=== PATIENT | female | born 1990 ===

== ENCOUNTER 2017-11-09 11:29 | Emergency (ER) | payer MEDICAID ==
[2017-11-09 11:29] VITALS: BMI 40.1
--- NOTE | 2017-11-09 12:36 | C.PDOC ---
History Of Present Illness 27 y/o F c no PMHx p/w R shoulder pain since last night. Patient was walking down stairs holding onto railing and missed step, fell down, still holding onto railing, and felt a pop in the shoulder. Sharp, severe pain in shoulder, gradually worsening since last night, unable to range due to pain. Denies headstrike, LOC, nausea, vomiting, numbness. Time Seen by Provider: 11/09/17 12:20 Chief Complaint (Nursing): Upper Extremity Problem/Injury Past Medical History Vital Signs: Last Vital Signs Temp 98.9 F 11/09/17 16:11 Pulse 65 11/09/17 16:11 Resp 20 11/09/17 16:11 BP 125/71 11/09/17 16:11 Pulse Ox 99 11/09/17 16:11 - Medical History PMH: Asthma Family History: States: Unknown Family Hx - Social History Hx Alcohol Use: Yes Hx Substance Use: No - Immunization History Hx Tetanus Toxoid Vaccination: No Hx Influenza Vaccination: No Hx Pneumococcal Vaccination: No Review Of Systems Except As Marked, All Systems Reviewed And Found Negative. Constitutional: Negative for: Fever Respiratory: Negative for: Shortness of Breath Physical Exam - Physical Exam Additional Physical Exam Comments: Gen: In distress secondary to pain. Head: NC/AT. FROM of elbow. No elbow tenderness. No forearm tenderness. Radial pulse 2+. Moves digits. No deltoid numbness. No obvious deformity. No clavicular tenderness. ED Course And Treatment O2 Sat by Pulse Oximetry: 98 Medical Decision Making Medical Decision Making: Toradol for pain. XR to rule out fracture vs dislocation. XR shows possible shoulder subluxation. Reduced with conscious sedation. Repeat XR: Findings: Status post reduction of the right proximal humerus. Flattening of the posterior lateral humeral head which may represent a Hill- Sachs deformity. Limited evaluation of the inferior bony glenoid on this single frontal view. Acromioclavicular joint space appears preserved. Impression: Status post reduction of the right proximal humerus. Flattening of the posterior lateral humeral head which may represent a Hill- Sachs deformity. Limited evaluation of the inferior bony glenoid on this single frontal view. If pain persists, consider MRI. Placed in sling and swathe. Patient continues to have pain but shoulder movement improved. Deltoid sensation and distal digits sensation intact. Moves digits normally. Radial pulse 2+. Discharged home, f/u Ortho, return to ED for worsening pain, numbness, weakness , skin color or temperature change. Disposition - Disposition Referrals: Rob Francis MD [Staff Provider] - Disposition: HOME/ ROUTINE Disposition Time: 16:07 Condition: STABLE Prescriptions: oxyCODONE/Acetaminophen [Percocet 5/325 mg Tab] 1 tab PO Q6 #10 tab Instructions: Shoulder Dislocation (ED) Forms: [employer] (Divehi) - Clinical Impression Clinical Impression: Shoulder subluxation ED Procedural Sedation - Pre Anesthesia Assessment Chief Complaint: Upper Extremity Problem/Injury Past Medical History: Medications Reviewed, Allergies Reviewed Previous Surgies: Reviewed - Physical Exam/Review of Systems Vital Signs Reviewed: Yes Cardiovascular: Regular Rate and Rhythm Respiratory/Chest: Clear to Auscultation Neurological: GCS=15 Abdomen: denies: Tenderness Mental Status: Alert and Oriented X 3 - Pre-Procedure Airway Assessment History of difficult intubation or surgical airway (i.e trach):: No Inability to extend neck:: No Mouth opening less than two finger breadth:: No Diagnosis of sleep apnea:: No Less than three finger breadth to hyoid bone:: No ASA Criteria: 1 - Healthy, normal. 2 - Mild systemic disease (No functional limitations, mildline obesity, DM withot complications, Hypertention). 3 - Severe systemic disease (Some functional limitation, stable angina, morbid obesity, controlled COPD/Asthma/CHF). 4 - Sever systemic disease constant threat to life (Unstable angina, active symptoms of COPD/Asthma, CHF/ Hypertension. 5 - Moribund ASA Clarification: ASA I Mallampati (airway): Class II - Intra-Procedure (Medications) Medications Given: Discontinued Medications Acetaminophen (Tylenol 325mg Tab) 975 mg PO ONCE ONE Stop: 11/09/17 12:08 Last Admin: 11/09/17 12:00 Dose: 975 mg MAR Pain/Vitals Document 11/09/17 12:00 FLOOR WINDER (Rec: 11/09/17 12:08 FLOOR WINDER [id number]) Pain Reassessment Is This A Pain ReAssessment? Yes Sleep Is patient sleeping during reassessment? Yes Pain Scale Used Pain Scale Used Numeric Location Left, Right or Bilateral Right Pain Location Body Site Shoulder Intensity 10 Scale Used Numeric Alleviating Factors Medication Ketorolac Tromethamine (Toradol) 60 mg IM STAT STA Stop: 11/09/17 12:27 Last Admin: 11/09/17 13:05 Dose: 60 mg MAR Pain Assessment Document 11/09/17 13:05 FLOOR WINDER (Rec: 11/09/17 13:06 FLOOR WINDER [id number]) Pain Reassessment Is this a pain reassessment? Yes Sleep Is patient sleeping during reassessment? No Presence of Pain Presence of Pain Yes Pain Scale Used Pain Scale Used Numeric IM Administration Charges Document 11/09/17 13:05 FLOOR WINDER (Rec: 11/09/17 13:06 FLOOR WINDER [id number]) Injection Site MAR Injection Site Right Gluteus Matthew Charges for Administration # of IM Administrations 1 Morphine Sulfate (Morphine) 6 mg IVP STAT STA Stop: 11/09/17 15:04 Last Admin: 11/09/17 15:09 Dose: 6 mg MAR Pain Assessment Document 11/09/17 15:09 AMB (Rec: 11/09/17 15:09 AMB [id number]) Pain Reassessment Is this a pain reassessment? No IVP Administration Document 11/09/17 15:09 AMB (Rec: 11/09/17 15:09 AMB [id number]) Charges for Administration # of IVP Administrations 2 Propofol (Diprivan) 140 mg IV ONCE ONE Stop: 11/09/17 15:04 - Post-Procedure Post Procedure Note: L shoulder reduced using traction and counter traction. Patient was observed post procedure and awoke. No desaturations or hypotension.
--- NOTE | 2017-11-09 13:13 | RAD ---
Right shoulder two views History: Fall. Comparison: None available. Findings: Limited study as only two views were obtained. No external rotation view noted. Inferior subluxation of the right proximal humerus in relationship to the bony glenoid. No evidence of acute displaced fracture or dislocation. Acromioclavicular joint space appears preserved. Impression: Suggestion of inferior subluxation of the proximal humerus in relationship to the bony glenoid. Clinical correlation. Correlation with MRI may be helpful if clinically indicated.
--- NOTE | 2017-11-09 13:21 | RAD ---
Right humerus two views History: Fall. Comparison: None available. Findings: Suggestion of inferior subluxation of the right proximal humerus in relationship to the bony glenoid. Acromioclavicular joint space appears preserved. No evidence for acute displaced fracture. Limited evaluation of the elbow joint. Impression: Suggestion of inferior subluxation of the right proximal humerus in relationship to the bony glenoid.
[2017-11-09] MEDS ORDERED: Propofol 10 mg/ml Inj (20 ML) IV STA (13:52)
[2017-11-09] MEDS ORDERED: Propofol 10 mg/ml Inj (20 ML) ONE (14:18)
[2017-11-09] MEDS ORDERED: Propofol 10 mg/ml Inj (20 ML) IV ONE (15:03)
[2017-11-09] MEDS ORDERED: Morphine 4 MG/ML VIAL ONE (15:07)
[2017-11-09 15:42] VITALS: RESP 20
--- NOTE | 2017-11-09 15:54 | RAD ---
Right shoulder single frontal view History: Shoulder reduction. Comparison: 11/09/2017 Findings: Status post reduction of the right proximal humerus. Flattening of the posterior lateral humeral head which may represent a Hill-Sachs deformity. Limited evaluation of the inferior bony glenoid on this single frontal view. Acromioclavicular joint space appears preserved. Impression: Status post reduction of the right proximal humerus. Flattening of the posterior lateral humeral head which may represent a Hill-Sachs deformity. Limited evaluation of the inferior bony glenoid on this single frontal view. If pain persists, consider MRI.
[2017-11-09 16:12] VITALS: BP 125/71; PULSE 65; TEMP 98.9
[2017-11-09 17:58] VITALS: O2SAT 98
== END 2017-11-09 16:43 | disposition home or self-care (01) ==
LOC: C.ER 11:29
DX: S43.001A Unspecified subluxation of right shoulder joint, initial encounter (principal); W10.9XXA Fall (on) (from) unspecified stairs and steps, initial encounter
CPT/HCPCS: 23650; 73030; 73060; 96372; 96374; 96376; 99285; J1885; J2270

== ENCOUNTER 2018-01-14 16:10 | Emergency (ER) | payer MEDICAID ==
[2018-01-14 16:46] VITALS: BMI 40.3
[2018-01-14] MEDS ORDERED: Sodium Chloride 0.9% 1,000 ML IV ONE (17:08)
[2018-01-14] MEDS ORDERED: Aluminum Hydroxide/Magnesium Hydroxide Susp (30 mL) PO STA (17:16)
[2018-01-14] MEDS ORDERED: Belladonna-Phenobarbital PO STA (17:16)
[2018-01-14] MEDS ORDERED: Aluminum Hydroxide/Magnesium Hydroxide Susp (30 mL) ONE (17:41)
[2018-01-14] MEDS ORDERED: Belladonna-Phenobarbital ONE (17:41)
[2018-01-14] MEDS ORDERED: Sodium Chloride 0.9% 1,000 ML ONE (17:41)
[2018-01-14 18:10] LABS: BASO % 0.2 % (0.0-2.0); EOS # 0.1 K/uL (0.0-0.7); EOS % 0.6 % (0.0-4.0); HEMOGLOBIN 13.3 g/dL (11.0-16.0); LYMPH # 3.2 K/uL (1.0-4.3); LYMPH % 29.8 % (20.0-40.0); MEAN CELL VOLUME 98.7 fL (81.0-99.0); MEAN CORPUSCULAR HEMOGLOBIN 33.9 pg (27.0-31.0); MEAN CORPUSCULAR HGB CONC 34.3 g/dL (33.0-37.0); MEAN PLATELET VOLUME 7.8 fL (7.2-11.7); MONO # 0.8 K/uL (0.0-0.8); MONO % 7.3 % (0.0-10.0); NEUT # 6.7 K/uL (1.8-7.0); NEUT % 62.1 % (50.0-75.0); RBC 3.91 Mil/uL (3.80-5.20); RED CELL DISTRIBUTION WIDTH 13.4 % (11.5-14.5); WHITE BLOOD COUNT 10.8 K/uL (4.8-10.8)
[2018-01-14 18:13] LABS: SQUAMOUS EPITHIAL 10 /hpf (0-5); URINE BACTERIA RARE (<OCC); URINE BILIRUBIN NEGATIVE (NEGATIVE); URINE BLOOD 1+ (NEGATIVE); URINE CLARITY Hazy (Clear); URINE COLOR Yellow (YELLOW); URINE GLUCOSE (UA) NORMAL (Normal); URINE LEUKOCYTE ESTERASE TRACE Leu/uL (Negative); URINE NITRATE NEGATIVE (NEGATIVE); URINE PROTEIN NEGATIVE (NEGATIVE); URINE UROBILINOGEN NORMAL mg/dL (0.2-1.0)
[2018-01-14 18:22] LABS: ALB/GLOB RATIO 1.1 (1.0-2.1); ALBUMIN 3.6 g/dL (3.5-5.0); ALT/SGPT 24 U/L (9-52); AST/SGOT 18 U/L (14-36); BLOOD UREA NITROGEN 7 mg/dL (7-17); GFR AFRICAN-AMERICAN > 60; GFR NON-AFRICAN AMERICAN > 60; LIPASE 47 U/L (23-300)
--- NOTE | 2018-01-14 19:43 | C.PDOC ---
History Of Present Illness 27 yr old female presents to the ER with complaints of left sided abdominal pain since morning, associated with mild nausea. Patient states she took Pepto- bismol with minimal relief. Denies fever, chills, vomiting, diarrhea, dysuria, hematuria or blood in stool. Time Seen by Provider: 01/14/18 16:56 Chief Complaint (Nursing): Abdominal Pain History Per: Patient History/Exam Limitations: no limitations Onset/Duration Of Symptoms: Sudden Onset (morning) Current Symptoms Are (Timing): Still Present Past Medical History Reviewed: Historical Data, Nursing Documentation, Vital Signs Vital Signs: Last Vital Signs Temp 98.0 F 01/14/18 21:08 Pulse 58 L 01/14/18 21:08 Resp 16 01/14/18 21:08 BP 114/79 01/14/18 21:08 Pulse Ox 99 01/14/18 21:08 - Medical History PMH: Asthma Family History: States: No Known Family Hx - Social History Hx Alcohol Use: Yes Hx Substance Use: Yes - Immunization History Hx Tetanus Toxoid Vaccination: No Hx Influenza Vaccination: No Hx Pneumococcal Vaccination: No Review Of Systems Except As Marked, All Systems Reviewed And Found Negative. Constitutional: Negative for: Fever, Chills Gastrointestinal: Positive for: Nausea (mild), Abdominal Pain (left sided). Negative for: Vomiting, Diarrhea Genitourinary: Negative for: Dysuria, Hematuria Physical Exam - Physical Exam Appears: Non-toxic, No Acute Distress Skin: Warm, Dry, No Rash Eye(s): bilateral: Normal Inspection, PERRL, EOMI Oral Mucosa: Moist Cardiovascular: Rhythm Regular, No Murmur Respiratory: Normal Breath Sounds, No Rales, No Rhonchi, No Wheezing Gastrointestinal/Abdominal: Soft, Tenderness (minimal left sided tenderness), No Guarding, No Rebound Back: No CVA Tenderness Extremity: Normal ROM, No Swelling Neurological/Psych: Oriented x3, Normal Speech ED Course And Treatment - Laboratory Results Result Diagrams: 01/14/18 18:02 01/14/18 18:02 O2 Sat by Pulse Oximetry: 100 (RA) Pulse Ox Interpretation: Normal - CT Scan/US CT - Abd & Pelvis Other Rad Studies (CT/US): Read By Radiologist, Radiology Report Reviewed CT/US Interpretation: EXAM: CT Abdomen and Pelvis With Intravenous Contrast. EXAM DATE/TIME: Exam ordered 01/14/2018 6:38 PM. CLINICAL HISTORY: 27 years old, female; Pain and signs and symptoms; Nausea and vomiting; Abdominal pain; Flank;. Left upper quadrant (luq); Additional info: Left-sided abdominal pain. TECHNIQUE: Axial computed tomography images of the abdomen and pelvis with intravenous contrast. All CT. scans at this facility use one or more dose reduction techniques, viz.: automated exposure control;. ma/kV adjustment per patient size (including targeted exams where dose is matched to indication; i.e. head); or iterative reconstruction technique. Coronal and sagittal reformatted images were created and reviewed. CONTRAST: 100 mL of visipaque 320 administered intravenously. COMPARISON: No relevant prior studies available. FINDINGS: Lower thorax: No acute findings. ABDOMEN: Liver: Unremarkable. No mass. Gallbladder and bile ducts: Unremarkable. No calcified stones. No ductal dilation. Pancreas: Unremarkable. No mass. No ductal dilation. Spleen: Unremarkable. No splenomegaly. Adrenals: Unremarkable. No mass. Kidneys and ureters: Unremarkable. No solid mass. No hydronephrosis. Stomach and bowel: Unremarkable. No obstruction. No mucosal thickening. Appendix: No findings to suggest acute appendicitis. PELVIS: Bladder: Unremarkable. No mass. Reproductive: An IUD is present within the uterus. ABDOMEN and PELVIS: Intraperitoneal space: Unremarkable. No free air. No significant fluid collection. Bones/joints: No acute fracture. No dislocation. Soft tissues: Unremarkable. Vasculature: Unremarkable. No abdominal aortic aneurysm. Lymph nodes: Unremarkable. No enlarged lymph nodes. IMPRESSION: No acute findings. Medical Decision Making Medical Decision Making: PLAN: * CT - Abd & Pelvis * Labs * Urinalysis * PO * Maalox PO * Pepcid IVP * Zofran IVP * Sodium Chloride IV Disposition - Disposition Referrals: [facility], [Non-Staff] - Disposition: HOME/ ROUTINE Disposition Time: 20:20 Condition: GOOD Additional Instructions: Thank you for letting us take care of you today. The emergency medical care you received today was directed at your acute symptoms. If you were prescribed any medication, please fill it and take as directed. It may take several days for your symptoms to resolve. Return to the Emergency Department if your symptoms worsen, do not improve, or if you have any other problems. Please contact your doctor or call one of the physicians/clinics you have been referred to that are listed on the Patient Visit Information form that is included in your discharge packet. Bring any paperwork you were given at discharge with you along with any medications you are taking to your follow up visit. Our treatment cannot replace ongoing medical care by a primary care provider (PCP) outside of the emergency department. Thank you for allowing the [facility] team to be part of your care today. Follow up with your doctor in 2-3 days for re-evaluation and further management. Prescriptions: Ondansetron ODT [Zofran ODT] 8 mg PO Q8 PRN #20 odt PRN Reason: Nausea/Vomiting Instructions: Gastritis Forms: Work Excuse - Clinical Impression Clinical Impression: Abdominal pain - Scribe Statement The provider has reviewed the documentation as recorded by the Kt Liu Provider Attestation: All medical record entries made by the Kt were at my direction and personally dictated by me. I have reviewed the chart and agree that the record accurately reflects my personal performance of the history, physical exam, medical decision making, and the department course for this patient. I have also personally directed, reviewed, and agree with the discharge instructions and disposition.
[2018-01-14 20:16] VITALS: RESP 16
--- NOTE | 2018-01-14 20:40 | CT ---
EXAM: CT Abdomen and Pelvis With Intravenous Contrast EXAM DATE/TIME: Exam ordered 01/14/2018 6:38 PM CLINICAL HISTORY: 27 years old, female; Pain and signs and symptoms; Nausea and vomiting; Abdominal pain; Flank; Left upper quadrant (luq); Additional info: Left-sided abdominal pain TECHNIQUE: Axial computed tomography images of the abdomen and pelvis with intravenous contrast. All CT scans at this facility use one or more dose reduction techniques, viz.: automated exposure control; ma/kV adjustment per patient size (including targeted exams where dose is matched to indication; i.e. head); or iterative reconstruction technique. Coronal and sagittal reformatted images were created and reviewed. CONTRAST: 100 mL of visipaque 320 administered intravenously. COMPARISON: No relevant prior studies available. FINDINGS: Lower thorax: No acute findings. ABDOMEN: Liver: Unremarkable. No mass. Gallbladder and bile ducts: Unremarkable. No calcified stones. No ductal dilation. Pancreas: Unremarkable. No mass. No ductal dilation. Spleen: Unremarkable. No splenomegaly. Adrenals: Unremarkable. No mass. Kidneys and ureters: Unremarkable. No solid mass. No hydronephrosis. Stomach and bowel: Unremarkable. No obstruction. No mucosal thickening. Appendix: No findings to suggest acute appendicitis. PELVIS: Bladder: Unremarkable. No mass. Reproductive: An IUD is present within the uterus. ABDOMEN and PELVIS: Intraperitoneal space: Unremarkable. No free air. No significant fluid collection. Bones/joints: No acute fracture. No dislocation. Soft tissues: Unremarkable. Vasculature: Unremarkable. No abdominal aortic aneurysm. Lymph nodes: Unremarkable. No enlarged lymph nodes. IMPRESSION: No acute findings.
[2018-01-14 21:09] VITALS: BP 114/79; PULSE 58; TEMP 98
[2018-01-15 00:53] VITALS: O2SAT 100
== END 2018-01-14 21:08 | disposition home or self-care (01) ==
LOC: C.ER 16:10
DX: R10.9 Unspecified abdominal pain (principal)
CPT/HCPCS: 74177; 80053; 81001; 83690; 85025; 87086; 96374; 96375; 99285; J2405; J7040

== ENCOUNTER 2018-01-16 11:55 | Emergency (ER) | payer MEDICAID ==
[2018-01-16 12:12] VITALS: BMI 41.1
[2018-01-16 12:15] VITALS: RESP 18
--- NOTE | 2018-01-16 13:20 | C.PDOC ---
History Of Present Illness 27 yr old female presents to the ER with complaints of left sided abdominal pain for the past two days, associated with mild nausea. Patient states she is taking Pepto-bismol at home with minimal relief. Patient seen in ER two days ago for same complaint and had normal scan and workup. Denies fever, chills, vomiting, diarrhea, dysuria, hematuria or blood in stool. Chief Complaint (Nursing): Abdominal Pain History Per: Patient History/Exam Limitations: no limitations Onset/Duration Of Symptoms: Days Current Symptoms Are (Timing): Still Present Severity: Moderate Past Medical History Reviewed: Historical Data, Nursing Documentation, Vital Signs Vital Signs: Last Vital Signs Temp 98.2 F 01/16/18 16:35 Pulse 58 L 01/16/18 16:35 Resp 18 01/16/18 16:35 BP 105/72 01/16/18 16:35 Pulse Ox 100 01/16/18 16:35 - Medical History PMH: Asthma Family History: States: No Known Family Hx - Social History Hx Alcohol Use: Yes Hx Substance Use: Yes - Immunization History Hx Tetanus Toxoid Vaccination: No Hx Influenza Vaccination: No Hx Pneumococcal Vaccination: No Review Of Systems Except As Marked, All Systems Reviewed And Found Negative. Cardiovascular: Negative for: Chest Pain, Palpitations Gastrointestinal: Positive for: Nausea, Abdominal Pain. Negative for: Vomiting , Diarrhea Musculoskeletal: Negative for: Back Pain Neurological: Negative for: Weakness, Headache, Dizziness Physical Exam - Physical Exam Appears: Non-toxic, No Acute Distress Skin: Warm, Dry, No Rash Neck: Normal ROM Chest: Symmetrical Cardiovascular: Rhythm Regular, No Murmur Respiratory: Normal Breath Sounds, No Accessory Muscle Use Gastrointestinal/Abdominal: Soft, Tenderness (Mild, epigastric), No Guarding, No Rebound, Other (No RUQ tenderness) Extremity: Normal ROM Neurological/Psych: Oriented x3, Normal Speech ED Course And Treatment - Laboratory Results Result Diagrams: 01/16/18 13:51 01/16/18 13:51 O2 Sat by Pulse Oximetry: 96 (RA) Pulse Ox Interpretation: Normal Progress Note: Labd and UA ordered and reviewed. On re-evaluation patient feels better and is stable to be d/c home with Clinic follow up. Disposition - Disposition Referrals: [facility] [Outside] Disposition: HOME/ ROUTINE Disposition Time: 16:22 Condition: STABLE Additional Instructions: Follow up with your PMD within 1-2 days. Return to ED if feel worse. Prescriptions: Famotidine [Pepcid] 20 mg PO BID #20 tab Ondansetron [Zofran Odt] 1 - 2 tab PO .Q4-6H PRN #20 odt PRN Reason: Nausea/Vomiting Instructions: Acute Abdomen (Belly Pain) Forms: [employer] (Nicaraguan), Work Excuse - Clinical Impression Clinical Impression: Abdominal pain - Scribe Statement The provider has reviewed the documentation as recorded by the Scribe (Quintin Lozano) All medical record entries made by the Scribe were at my direction and personally dictated by me. I have reviewed the chart and agree that the record accurately reflects my personal performance of the history, physical exam, medical decision making, and the department course for this patient. I have also personally directed, reviewed, and agree with the discharge instructions and disposition.
[2018-01-16 14:01] LABS: BASO % 0.2 % (0.0-2.0); EOS # 0.1 K/uL (0.0-0.7); EOS % 0.7 % (0.0-4.0); HEMOGLOBIN 14.2 g/dL (11.0-16.0); LYMPH # 2.2 K/uL (1.0-4.3); LYMPH % 26.3 % (20.0-40.0); MEAN CORPUSCULAR HEMOGLOBIN 34.3 pg (27.0-31.0); MEAN PLATELET VOLUME 7.5 fL (7.2-11.7); MONO # 0.7 K/uL (0.0-0.8); MONO % 9.1 % (0.0-10.0); NEUT # 5.2 K/uL (1.8-7.0); NEUT % 63.7 % (50.0-75.0); RBC 4.13 Mil/uL (3.80-5.20); RED CELL DISTRIBUTION WIDTH 13.8 % (11.5-14.5); WHITE BLOOD COUNT 8.2 K/uL (4.8-10.8)
[2018-01-16 14:15] LABS: ALT/SGPT 30 U/L (9-52); AST/SGOT 36 U/L (14-36); BLOOD UREA NITROGEN 10 mg/dL (7-17); CALCIUM 9.2 mg/dl (8.6-10.4); GFR AFRICAN-AMERICAN > 60; GFR NON-AFRICAN AMERICAN > 60; LIPASE 39 U/L (23-300)
[2018-01-16 14:16] LABS: HCG,QUALITATIVE URINE NEGATIVE (NEGATIVE)
[2018-01-16 14:23] LABS: SQUAMOUS EPITHIAL 28 /hpf (0-5); URINE AMORPHOUS SEDIMENT RARE /ul (<OCC); URINE BACTERIA RARE (<OCC); URINE BILIRUBIN NEGATIVE (NEGATIVE); URINE BLOOD 2+ (NEGATIVE); URINE CLARITY Hazy (Clear); URINE GLUCOSE (UA) NORMAL (Normal); URINE LEUKOCYTE ESTERASE TRACE Leu/uL (Negative); URINE NITRATE NEGATIVE (NEGATIVE); URINE PROTEIN 1+ mg/dL (NEGATIVE)
[2018-01-16 14:46] LABS: URINE COLOR YELLOW (YELLOW)
[2018-01-16 16:36] VITALS: BP 105/72; PULSE 58; TEMP 98.2
[2018-01-16 18:29] VITALS: O2SAT 96
== END 2018-01-16 16:36 | disposition home or self-care (01) ==
LOC: C.ER 11:55
DX: R10.9 Unspecified abdominal pain (principal)

== ENCOUNTER 2018-01-20 14:46 | Emergency (ER) | payer MEDICAID ==
[2018-01-20 14:47] VITALS: BMI 40.3
[2018-01-20 15:17] VITALS: O2SAT 97
--- NOTE | 2018-01-20 16:46 | C.PDOC ---
History Of Present Illness 27 year old female presents to the ED for evaluation of generalized body aches, cough, fever and chills which began 2 days ago. Patient denies shortness of breath, neck pain, chest pain, dizziness, abdominal pain. Time Seen by Provider: 01/20/18 15:42 Chief Complaint (Nursing): Flu-like Symptoms History Per: Patient History/Exam Limitations: no limitations Onset/Duration Of Symptoms: Days (2) Current Symptoms Are (Timing): Still Present Associated Symptoms: Fever, Chills, Cough Past Medical History Reviewed: Historical Data, Nursing Documentation, Vital Signs Vital Signs: Last Vital Signs Temp 99.4 F 01/20/18 19:53 Pulse 78 01/20/18 19:53 Resp 20 01/20/18 19:53 BP 118/76 01/20/18 19:53 Pulse Ox 97 01/20/18 21:34 - Medical History PMH: Asthma Surgical History: No Surg Hx Family History: States: Unknown Family Hx - Social History Hx Alcohol Use: Yes Hx Substance Use: Yes - Immunization History Hx Tetanus Toxoid Vaccination: No Hx Influenza Vaccination: No Hx Pneumococcal Vaccination: No Review Of Systems Constitutional: Positive for: Fever, Chills Eyes: Negative for: Vision Change Cardiovascular: Negative for: Chest Pain Respiratory: Positive for: Cough Musculoskeletal: Positive for: Other (generalized body aches ). Negative for: Neck Pain Physical Exam - Physical Exam Appears: Non-toxic, No Acute Distress Skin: Normal Color, Warm, Dry Head: Atraumatic, Normacephalic Eye(s): bilateral: Normal Inspection Ear(s): Bilateral: Normal Nose: Normal, No Discharge Oral Mucosa: Moist Throat: Normal, No Erythema, No Exudate Neck: Supple Chest: Symmetrical, No Deformity, No Tenderness Cardiovascular: Rhythm Regular, No Murmur Respiratory: Normal Breath Sounds, No Rales, No Rhonchi, No Wheezing Extremity: Normal ROM, Capillary Refill Neurological/Psych: Oriented x3, Normal Speech, Normal Cognition ED Course And Treatment O2 Sat by Pulse Oximetry: 97 Progress Note: CXR and UA ordered and reviewed. Tamiflu PO, Toradol IVP, Tylenol PO, and IV Fluids administered. On re-evaluation, patient is resting comfortably, tolerating PO, and is afebrile at this time. Ua evaluated, no uti symtpoms, contaminated specimen. Blood noted, CT abd within last week evaluated. Pt asymptomatic, instructed to re-evaluate with PMD in 2-3 days. Patient was instructed to return for any worsening symptoms, persistent fever, neck pain, rash, abdominal pain, or vomiting. Disposition - Disposition Disposition: HOME/ ROUTINE Disposition Time: 19:47 Condition: STABLE Additional Instructions: Follow up with your primary medical doctor or clinic in 2-5 days for further evaluation. Take medications as prescribed. Return to the emergency department at any time if symptoms persist or worsen. Prescriptions: Guaifen/Dextromethorphan/PE [Mucinex Fast-Max Congest-Cough] 1 each PO Q6 #20 tablet Ibuprofen [Motrin] 600 mg PO Q6 PRN #20 tab PRN Reason: Pain, Mild (1-3) Oseltamivir Phosphate [Tamiflu] 75 mg PO BID #10 capsule Instructions: Flu, Adult (DC) Forms: [employer] (Togolese), Work Excuse - Clinical Impression Clinical Impression: Influenza-like illness - PA / HOSPITALITY COORDINATOR / Resident Statement MD/DO has reviewed & agrees with the documentation as recorded. - Scribe Statement The provider has reviewed the documentation as recorded by the Scribe (Keli Piña) All medical record entries made by the Scribe were at my direction and personally dictated by me. I have reviewed the chart and agree that the record accurately reflects my personal performance of the history, physical exam, medical decision making, and the department course for this patient. I have also personally directed, reviewed, and agree with the discharge instructions and disposition.
--- NOTE | 2018-01-20 17:13 | RAD ---
HISTORY: SOB COMPARISON: None available. TECHNIQUE: Chest PA and lateral FINDINGS: Examination limited by habitus. LUNGS: No focal consolidation. Please note that chest x-ray has limited sensitivity for the detection of pulmonary masses. PLEURA: No significant pleural effusion identified. No definite pneumothorax . CARDIOVASCULAR: Heart size appears within normal limits. OSSEOUS STRUCTURES: No acute osseous abnormality identified. VISUALIZED UPPER ABDOMEN: Unremarkable. OTHER FINDINGS: None. IMPRESSION: No focal consolidation, significant pleural effusion, or definite pneumothorax identified.
[2018-01-20 18:02] LABS: HCG,QUALITATIVE URINE NEGATIVE (NEGATIVE)
[2018-01-20 18:04] LABS: SQUAMOUS EPITHIAL 11 /hpf (0-5); URINE BACTERIA FEW (<OCC); URINE BILIRUBIN NEGATIVE (NEGATIVE); URINE BLOOD 3+ (NEGATIVE); URINE CLARITY Hazy (Clear); URINE COLOR Yellow (YELLOW); URINE GLUCOSE (UA) NORMAL (Normal); URINE LEUKOCYTE ESTERASE 1+ Leu/uL (Negative); URINE NITRATE NEGATIVE (NEGATIVE); URINE PROTEIN NEGATIVE (NEGATIVE); URINE UROBILINOGEN NORMAL mg/dL (0.2-1.0)
[2018-01-20] MEDS ORDERED: Sodium Chloride 0.9% 1,000 ML IV ONE (18:35)
[2018-01-20] MEDS ORDERED: Sodium Chloride 0.9% 1,000 ML ONE (18:50)
[2018-01-20 19:53] VITALS: BP 118/76; PULSE 78; RESP 20; TEMP 99.4
== END 2018-01-20 20:23 | disposition home or self-care (01) ==
LOC: C.ER 14:46
DX: J11.1 Influenza due to unidentified influenza virus with other respiratory manifestations (principal)
CPT/HCPCS: 71046; 81001; 84703; 96361; 96374; 99285; J1885; J7040

== ENCOUNTER 2018-05-20 13:19 | Emergency (ER) | payer MEDICAID, OTHER ==
[2018-05-20 13:38] VITALS: BMI 41.1
[2018-05-20 13:41] VITALS: RESP 20
[2018-05-20] MEDS ORDERED: Sodium Chloride 0.9% 1,000 ML IV ONE (14:18)
--- NOTE | 2018-05-20 14:21 | C.PDOC ---
History Of Present Illness 28 y/o female w/o significant PMHx comes in for evaluation of diffuse abdominal pain associated with nausea and multiple episodes of non-bilious vomiting since this morning. Pt admits she was unable to tolerate any PO intake before coming in. She was seen at [facility] prior to arrival, where she received 1 liter of IV fluids and Zofran 8 mg. At present time, patient reports feeling hungry and is asking for food. Pt sts, was referred to check for gall bladder disease. Otherwise, patient denies fever, chills, recent illness, sore throat, CP, SOB, dyspnea, cough, diarrhea, hematemesis, melena, hematoschezia, UTI symptoms, denies recent illness, sick contacts, and recent travel. Ambulate to Ed for evaluation, not in any apparent distress. Time Seen by Provider: 05/20/18 13:56 Chief Complaint (Nursing): Abdominal Pain History Per: Patient History/Exam Limitations: no limitations Onset/Duration Of Symptoms: Hrs Current Symptoms Are (Timing): Better Past Medical History Reviewed: Historical Data, Nursing Documentation, Vital Signs Vital Signs: Last Vital Signs Temp 98.2 F 05/20/18 16:26 Pulse 71 05/20/18 16:26 Resp 20 05/20/18 16:26 BP 107/72 05/20/18 16:26 Pulse Ox 100 05/20/18 16:26 - Medical History PMH: Asthma Other PMH: Morbidly obese Surgical History: No Surg Hx Other Surgeries: Nose surgery, DNC Family History: States: Unknown Family Hx - Social History Hx Tobacco Use: Yes Hx Alcohol Use: Yes Hx Substance Use: Yes - Immunization History Hx Tetanus Toxoid Vaccination: No Hx Influenza Vaccination: No Hx Pneumococcal Vaccination: No Review Of Systems Except As Marked, All Systems Reviewed And Found Negative. Constitutional: Negative for: Fever, Chills Cardiovascular: Negative for: Chest Pain Respiratory: Negative for: Shortness of Breath Gastrointestinal: Positive for: Nausea, Vomiting, Abdominal Pain. Negative for : Diarrhea Physical Exam - Physical Exam Appears: Non-toxic, No Acute Distress Skin: Normal Color, Warm, No Rash Head: Normacephalic Eye(s): bilateral: PERRL Oral Mucosa: Moist Throat: No Erythema, No Drooling Neck: Trachea Midline, No Midline Cervical Tenderness, No Paracervical Tenderness, Supple Chest: Symmetrical, No Deformity Cardiovascular: Rhythm Regular, No Murmur, No JVD Respiratory: No Decreased Breath Sounds, No Accessory Muscle Use, No Rales, No Rhonchi, No Stridor, No Wheezing Gastrointestinal/Abdominal: Soft, Tenderness (mild epigastric tenderness), No Organomegaly, No Distention, No Guarding, No Rebound Back: No CVA Tenderness Extremity: Normal ROM, No Deformity, No Swelling Extremity: Bilateral: Atraumatic, Normal Color And Temperature, Normal ROM Neurological/Psych: Oriented x3, Normal Speech, Normal Cranial Nerves, Other ( No focal deficits) ED Course And Treatment - Laboratory Results Result Diagrams: 05/20/18 14:38 05/20/18 14:38 Lab Interpretation: Normal Urine POC: Negative O2 Sat by Pulse Oximetry: 99 (RA) Pulse Ox Interpretation: Normal - CT Scan/US Gallbladder US Other Rad Studies (CT/US): Radiology Report Reviewed CT/US Interpretation: HISTORY: RUQ pain. COMPARISON: None. TECHNIQUE: Sonographic evaluation of the right upper quadrant of the abdomen. FINDINGS: LIVER: Measures 15.3 cm in length. Normal echogenicity of the liver parenchyma. No mass. No intrahepatic bile duct dilatation. GALLBLADDER: Unremarkable. No gallstones. COMMON BILE DUCT: Measures 1.9 mm. No stones. No dilatation. PANCREAS: The tail of the pancreas is obscured by overlying bowel gas with remainder unremarkable. RIGHT KIDNEY: Measures 11.2 cm in length. Normal echogenicity. No calculus, mass, or hydronephrosis. AORTA: No aneurysmal dilatation. IVC: Unremarkable. OTHER FINDINGS: None . IMPRESSION : Pancreas is limited in evaluation due to overlying bowel gas with the body appear unremarkable. The remainder the exam including gallbladder are otherwise unremarkable. . Progress Note: Blood work and urine sent. Patient treated with IV fluids, Protonix, and Pepcid. Pt was OBS in ED for 2 hours and reports moderate improvement in sx, pt admits " still hungry". On re-evaluation, pt is afebrile , hemodynamicaly stable. Non-toxic. Tolerate Po well in ED. ENT: no acute findigs. Neck: Supple, (-) JVD, (-) carotid bruits B/L. Lungs: CTA B/L, BS equla B/L. CVS: (+)S1S2, reg. Abd: benign, (-) guarding, (-) rebound, (-) localized tenderness. back: (-) CVA tenderness. Blood work review, appears normal. UA -no acute findings. preg (-). Gallbladder US (-) acute findings. Pt has clinical finidngs c/w epigastric pain, N/V. Pt advised. ref. to F/u with PMD, GI in 2-3 days for re-evaluation. return to ED if any worsening or new changes. Disposition Counseled Patient/Family Regarding: Studies Performed, Diagnosis, Need For Followup, Rx Given - Disposition Referrals: Will Gaytan MD [Staff Provider] - Dell Bill MD [Staff Provider] - Disposition: HOME/ ROUTINE Disposition Time: 15:47 Condition: STABLE Additional Instructions: Encourage fluids Take medication as prescribed BRAT diet for 2-3 days: banana, rice, apple sauce, toast Follow up with PMD, GI in 2-3 days for re-evaluation. return to ED if any worsening or new changes. Prescriptions: Famotidine [Pepcid] 20 mg PO BID #20 tab Ondansetron ODT [Zofran ODT] 1 odt PO BID PRN #6 odt PRN Reason: Nausea/Vomiting Instructions: [place] Diet, Nausea and Vomiting, Adult (DC) Forms: [employer] (Hungarian), Work Excuse - Clinical Impression Clinical Impression: Nausea, Vomiting - PA / MED SPEC / Resident Statement MD/DO has reviewed & agrees with the documentation as recorded. - Scribe Statement The provider has reviewed the documentation as recorded by the Scribe (Ana Mckenna) All medical record entries made by the Scribe were at my direction and personally dictated by me. I have reviewed the chart and agree that the record accurately reflects my personal performance of the history, physical exam, medical decision making, and the department course for this patient. I have also personally directed, reviewed, and agree with the discharge instructions and disposition.
[2018-05-20 14:41] LABS: BASO % 0.5 % (0.0-2.0); EOS % 0.1 % (0.0-4.0); HEMOGLOBIN 13.8 g/dL (11.0-16.0); LYMPH # 1.8 K/uL (1.0-4.3); LYMPH % 17.3 % (20.0-40.0); MEAN CELL VOLUME 97.8 fL (81.0-99.0); MEAN CORPUSCULAR HEMOGLOBIN 34.1 pg (27.0-31.0); MEAN CORPUSCULAR HGB CONC 34.9 g/dL (33.0-37.0); MEAN PLATELET VOLUME 7.6 fL (7.2-11.7); MONO # 0.6 K/uL (0.0-0.8); MONO % 5.3 % (0.0-10.0); NEUT # 7.9 K/uL (1.8-7.0); NEUT % 76.8 % (50.0-75.0); RBC 4.03 Mil/uL (3.80-5.20); RED CELL DISTRIBUTION WIDTH 13.3 % (11.5-14.5); WHITE BLOOD COUNT 10.3 K/uL (4.8-10.8)
[2018-05-20 14:45] LABS: HCG,QUALITATIVE URINE NEGATIVE (NEGATIVE); SQUAMOUS EPITHIAL 1 /hpf (0-5); URINE BILIRUBIN NEGATIVE (NEGATIVE); URINE BLOOD 1+ (NEGATIVE); URINE CLARITY Clear (Clear); URINE COLOR Yellow (YELLOW); URINE GLUCOSE (UA) NORMAL (Normal); URINE LEUKOCYTE ESTERASE NEG Leu/uL (Negative); URINE PROTEIN NEGATIVE (NEGATIVE); URINE UROBILINOGEN NORMAL mg/dL (0.2-1.0)
[2018-05-20] MEDS ORDERED: Sodium Chloride 0.9% 1,000 ML ONE (14:52)
[2018-05-20 14:55] LABS: ALB/GLOB RATIO 1.2 (1.0-2.1); ALBUMIN 4.1 g/dL (3.5-5.0); CALCIUM 8.8 mg/dl (8.6-10.4); GFR AFRICAN-AMERICAN > 60; GFR NON-AFRICAN AMERICAN > 60; LIPASE 36 U/L (23-300)
[2018-05-20 15:06] LABS: ALT/SGPT 28 U/L (9-52); AST/SGOT 34 U/L (14-36); BLOOD UREA NITROGEN 11 mg/dL (7-17)
--- NOTE | 2018-05-20 15:51 | US ---
HISTORY: RUQ pain COMPARISON: None. TECHNIQUE: Sonographic evaluation of the right upper quadrant of the abdomen. FINDINGS: LIVER: Measures 15.3 cm in length. Normal echogenicity of the liver parenchyma. No mass. No intrahepatic bile duct dilatation. GALLBLADDER: Unremarkable. No gallstones. COMMON BILE DUCT: Measures 1.9 mm. No stones. No dilatation. PANCREAS: The tail of the pancreas is obscured by overlying bowel gas with remainder unremarkable. RIGHT KIDNEY: Measures 11.2 cm in length. Normal echogenicity. No calculus, mass, or hydronephrosis. AORTA: No aneurysmal dilatation. IVC: Unremarkable. OTHER FINDINGS: None . IMPRESSION: Pancreas is limited in evaluation due to overlying bowel gas with the body appear unremarkable. The remainder the exam including gallbladder are otherwise unremarkable.
[2018-05-20 16:27] VITALS: BP 107/72; PULSE 71; TEMP 98.2
[2018-05-20 17:44] VITALS: O2SAT 99
== END 2018-05-20 16:26 | disposition home or self-care (01) ==
LOC: C.ER 13:19
DX: R11.2 Nausea with vomiting, unspecified (principal); E66.01 Morbid (severe) obesity due to excess calories; Z72.0 Tobacco use
CPT/HCPCS: 76705; 80053; 81001; 83690; 84703; 85025; 96361; 96374; 96375; 99284; C9113; J7030

== ENCOUNTER 2018-09-04 06:48 | Emergency (ER) | payer OTHER ==
[2018-09-04 06:48] VITALS: BMI 41.1
[2018-09-04 07:06] VITALS: TEMP 98.4
[2018-09-04] MEDS ORDERED: Sodium Chloride 0.9% 1,000 ML IV ONE (07:18)
--- NOTE | 2018-09-04 07:21 | C.PDOC ---
History Of Present Illness 28 y/o female with history of Asthma presents to ED with c/o chest pain worse with cough or movement, diarrhea, headache, nausea and dizziness. Patient states she was recently admitted to [facility] for chest pain and abnormal EKG. Patient currently denies sob, vomiting, fever, chills or any other complaints at this time. Chief Complaint (Nursing): Chest Pain History Per: Patient History/Exam Limitations: no limitations Onset/Duration Of Symptoms: Days Current Symptoms Are (Timing): Still Present Past Medical History Reviewed: Historical Data, Nursing Documentation, Vital Signs Vital Signs: Last Vital Signs Temp 98.4 F 09/04/18 07:02 Pulse 78 09/04/18 07:02 Resp 20 09/04/18 07:02 BP 104/66 09/04/18 07:02 Pulse Ox 98 09/04/18 07:02 - Medical History PMH: Asthma, Bipolar Disorder Surgical History: No Surg Hx Family History: States: No Known Family Hx - Social History Hx Tobacco Use: Yes Hx Alcohol Use: Yes Hx Substance Use: Yes - Immunization History Hx Tetanus Toxoid Vaccination: No Hx Influenza Vaccination: No Hx Pneumococcal Vaccination: No Review Of Systems Except As Marked, All Systems Reviewed And Found Negative. Cardiovascular: Positive for: Chest Pain Gastrointestinal: Positive for: Nausea, Diarrhea Neurological: Positive for: Headache, Dizziness Physical Exam - Physical Exam Appears: Non-toxic, No Acute Distress Skin: Warm, Dry, No Rash Head: Atraumatic, Normacephalic Eye(s): bilateral: Normal Inspection Oral Mucosa: Moist Neck: Normal ROM, Supple Chest: Symmetrical Cardiovascular: Rhythm Regular Respiratory: Normal Breath Sounds, No Rales, No Rhonchi, No Wheezing Gastrointestinal/Abdominal: Soft, No Tenderness, No Guarding, No Rebound Extremity: Normal ROM, No Pedal Edema, Capillary Refill (<2 seconds) Neurological/Psych: Oriented x3, Normal Speech, Normal Cognition, Normal Motor, Normal Sensation ED Course And Treatment - Laboratory Results Result Diagrams: 09/04/18 08:07 09/04/18 08:07 O2 Sat by Pulse Oximetry: 98 (RA) Pulse Ox Interpretation: Normal Medical Decision Making Medical Decision Making: Impression: Viral Illness and Enteritis Plan: Blood work, UA, CXR, IV fluids and Reglan The pt is feeling nadia. All labs, cxr are unremarkable. Pt can be discharged home. Disposition - Disposition Referrals: [facility] [Outside] [facility] [Outside] [facility] [place] [Outside] Disposition: HOME/ ROUTINE Disposition Time: 10:11 Condition: GOOD Additional Instructions: Please keep bland diet and take motrin as directed for pain. Prescriptions: Ibuprofen [Motrin] 600 mg PO Q6 5 Days #20 tab Instructions: Diarrhea in Adolescents and Adults, Viral Syndrome (DC) Forms: [facility] (Pashto), Work Excuse - Clinical Impression Clinical Impression: Viral syndrome, Diarrhea - Scribe Statement The provider has reviewed the documentation as recorded by the Scribnimesh Booth All medical record entries made by the Heberibnimesh were at my direction and personally dictated by me. I have reviewed the chart and agree that the record accurately reflects my personal performance of the history, physical exam, medical decision making, and the department course for this patient. I have also personally directed, reviewed, and agree with the discharge instructions and disposition.
[2018-09-04] MEDS ORDERED: Sodium Chloride 0.9% 1,000 ML ONE (08:11)
[2018-09-04 08:12] LABS: BASO % 0.5 % (0.0-2.0); EOS # 0.1 K/uL (0.0-0.7); EOS % 2.2 % (0.0-4.0); HEMOGLOBIN 12.8 g/dL (11.0-16.0); LYMPH % 30.6 % (20.0-40.0); MEAN CORPUSCULAR HEMOGLOBIN 33.7 pg (27.0-31.0); MEAN CORPUSCULAR HGB CONC 35.1 g/dL (33.0-37.0); MEAN PLATELET VOLUME 7.4 fL (7.2-11.7); MONO # 1.1 K/uL (0.0-0.8); NEUT # 3.3 K/uL (1.8-7.0); NEUT % 49.7 % (50.0-75.0); RBC 3.78 Mil/uL (3.80-5.20); WHITE BLOOD COUNT 6.6 K/uL (4.8-10.8)
[2018-09-04 08:22] LABS: HCG,QUALITATIVE URINE NEGATIVE (NEGATIVE)
[2018-09-04 08:24] LABS: ALB/GLOB RATIO 1.2 (1.0-2.1); ALBUMIN 3.9 g/dL (3.5-5.0); BLOOD UREA NITROGEN 8 mg/dL (7-17); CALCIUM 9.2 mg/dl (8.6-10.4); GFR NON-AFRICAN AMERICAN > 60; LIPASE 42 U/L (23-300)
[2018-09-04 08:25] LABS: SQUAMOUS EPITHIAL 3 /hpf (0-5); URINE BACTERIA RARE (<OCC); URINE BILIRUBIN NEGATIVE (NEGATIVE); URINE BLOOD 2+ (NEGATIVE); URINE CLARITY Clear (Clear); URINE COLOR Yellow (YELLOW); URINE GLUCOSE (UA) NORMAL (Normal); URINE LEUKOCYTE ESTERASE 2+ Leu/uL (Negative); URINE PROTEIN NEGATIVE (NEGATIVE); URINE UROBILINOGEN NORMAL mg/dL (0.2-1.0)
[2018-09-04 08:26] LABS: ALT/SGPT 39 U/L (9-52); AST/SGOT 31 U/L (14-36)
--- NOTE | 2018-09-04 09:47 | RAD ---
Date of service: 09/04/2018 PROCEDURE: CHEST RADIOGRAPH, 1 VIEW HISTORY: chest pain COMPARISON: 01/20/2018. FINDINGS: LUNGS: The lungs are well inflated and clear. PLEURA: No pneumothorax or pleural fluid seen. CARDIOVASCULAR: Normal. OSSEOUS STRUCTURES: No significant abnormalities. VISUALIZED UPPER ABDOMEN: Normal. OTHER FINDINGS: None. IMPRESSION: No active pulmonary disease.
[2018-09-04 10:11] VITALS: BP 105/68; PULSE 68; RESP 18
--- NOTE | 2018-09-05 15:45 | CARD ---
APPROVED REPORT Date of service: 09/04/2018 EKG Measurement Heart [id number] CT [id number] <Conclusion> Normal sinus rhythm with sinus arrhythmia Normal ECG
[2018-09-10 17:53] VITALS: O2SAT 98
== END 2018-09-04 10:15 | disposition home or self-care (01) ==
LOC: C.ER 06:48
DX: B34.9 Viral infection, unspecified (principal); R19.7 Diarrhea, unspecified
CPT/HCPCS: 71045; 80053; 81001; 83690; 84484; 84703; 85025; 87804; 93005; 96361; 96374; 96375; 99284; J1885; J2765; J7030

== ENCOUNTER 2019-01-09 20:23 | Emergency (ER) | payer MEDICAID, OTHER ==
[2019-01-09 20:23] VITALS: BMI 41.1
[2019-01-09 20:45] VITALS: BP 129/91; PULSE 90; RESP 20; TEMP 98.6; O2SAT 99
--- NOTE | 2019-01-09 21:23 | C.PDOC ---
History Of Present Illness 28yo female w/PMHx right shoulder dislocation, comes to ER reporting pain to her right shoulder x couple weeks. She denies any new trauma or injury to the site; patient denies any obvious deformity, numbness or weakness to Right arm, denies CP, SOB, dyspnea, palpitation, diaphoresis. Ambulatory, not in any apparent distress. PMD: None Time Seen by Provider: 01/09/19 20:42 Chief Complaint (Nursing): Upper Extremity Problem/Injury History Per: Patient History/Exam Limitations: no limitations Onset/Duration Of Symptoms: Days Current Symptoms Are (Timing): Still Present Quality: "Pain" Exacerbating Factor(s): Strenuous Use Of Affected Area Additional History Per: Patient Past Medical History Reviewed: Historical Data, Nursing Documentation, Vital Signs Vital Signs: Last Vital Signs Temp 98.6 F 01/09/19 20:40 Pulse 90 01/09/19 20:40 Resp 20 01/09/19 20:40 BP 129/91 H 01/09/19 20:40 Pulse Ox 99 01/09/19 20:40 - Medical History PMH: Asthma, Bipolar Disorder Surgical History: No Surg Hx Family History: States: No Known Family Hx - Social History Hx Tobacco Use: Yes Hx Alcohol Use: Yes Hx Substance Use: Yes - Immunization History Hx Tetanus Toxoid Vaccination: No Hx Influenza Vaccination: No Hx Pneumococcal Vaccination: No Review Of Systems Except As Marked, All Systems Reviewed And Found Negative. Cardiovascular: Negative for: Chest Pain Respiratory: Negative for: Shortness of Breath Musculoskeletal: Positive for: Shoulder Pain (right) Physical Exam - Physical Exam Appears: Well, Non-toxic Skin: Normal Color, Warm, No Rash, No Ecchymosis Eye(s): bilateral: PERRL Neck: Trachea Midline, No Midline Cervical Tenderness, No Paracervical Tenderness, No Step Off Deformity, Supple Chest: Symmetrical Cardiovascular: Rhythm Regular, No Murmur, No JVD Respiratory: No Decreased Breath Sounds, No Accessory Muscle Use, No Stridor Extremity: No Normal ROM (+ Decreased ROM right shoulder due to pain, limited extension and abduction at right shoulder), Tenderness (diffuse tenderness to right shoulder and right upper back), Capillary Refill (< 2 seconds), No Deformity, Other (normal distal sensations) Pulses: Right Radial: Normal Neurological/Psych: Oriented x3, Normal Motor, Normal Sensation, Normal Reflexes ED Course And Treatment O2 Sat by Pulse Oximetry: 99 (RA) Pulse Ox Interpretation: Normal Progress Note: Patient with right shoulder pain x weeks; prednisone and tramadol PO given. On re-eval, pt is afebrile, hemodynamicaly stable. NOn-toxic. Right UE: exam c/w Right shoulder tendinidtis. NO neurovascular deficits, no palpable deformity. Pt advised and ref. to f/u with [facility] in 2 -3 days for re-eval/MRI o f Right shoulder. return fi any new hcanges. Disposition Counseled Patient/Family Regarding: Diagnosis, Need For Followup, Rx Given - Disposition Referrals: Rob Francis MD [Staff Provider] - Hunter Moody III, MD [Staff Provider] - [facility] [Outside] Disposition: HOME/ ROUTINE Disposition Time: 21:00 Condition: STABLE Additional Instructions: LIght duty to Right arm Avoid Right arm elevation Take medication as prescribed Follow up with Orthopedist in2 -3 days for re-evaluation. Return if any worsening or new changes. Prescriptions: Prednisone [Deltasone] 40 mg PO DAILY #6 tablet traMADol [Ultram] 50 mg PO TID #7 tab Instructions: Shoulder Tendinopathy (DC), Joint Pain Forms: [employer] (Serbian), School Excuse - Clinical Impression Clinical Impression: Shoulder tendonitis - PA / GRIP / Resident Statement MD/DO has reviewed & agrees with the documentation as recorded. - Scribe Statement The provider has reviewed the documentation as recorded by the Kt Martin Provider Attestation: All medical record entries made by the Kt were at my direction and personally dictated by me. I have reviewed the chart and agree that the record accurately reflects my personal performance of the history, physical exam, medical decision making, and the department course for this patient. I have also personally directed, reviewed, and agree with the discharge instructions and di sposition.
== END 2019-01-09 21:49 | disposition home or self-care (01) ==
LOC: C.ER 20:23
DX: M75.91 Shoulder lesion, unspecified, right shoulder (principal)

== ENCOUNTER 2019-01-21 19:21 | Emergency (ER) | payer MEDICAID ==
[2019-01-21 19:21] VITALS: BMI 41.1
[2019-01-21 19:46] VITALS: O2SAT 96
[2019-01-21] MEDS ORDERED: Sodium Chloride 0.9% 1,000 ML IV ONE (19:57)
[2019-01-21] MEDS ORDERED: Sucralfate 1 gm/10 ml Oral Susp UD PO STA (19:58)
--- NOTE | 2019-01-21 20:17 | C.PDOC ---
History Of Present Illness 28 year old female presents to the ED complaining of epigastric pain associated with slight nausea for a few hours. Reports she has a history of previous episodes of GERD. Notes the medications are not working this time. Denies any v omiting, diarrhea, shortness of breath, chest pain, fever, chills, urinary symptoms or any other symptoms. Chief Complaint (Nursing): Abdominal Pain History Per: Patient History/Exam Limitations: no limitations Onset/Duration Of Symptoms: Hrs Current Symptoms Are (Timing): Still Present Location Of Pain/Discomfort: Epigastric Radiation Of Pain To:: None Quality Of Discomfort: "Pain" Associated Symptoms: Nausea. denies: Fever, Chills, Vomiting, Diarrhea, Chest Pain, Urinary Symptoms Past Medical History Reviewed: Historical Data, Nursing Documentation, Vital Signs Vital Signs: Last Vital Signs Temp 98.7 F 01/21/19 19:35 Pulse 107 H 01/21/19 19:35 Resp 20 01/21/19 19:35 BP 142/82 01/21/19 19:35 Pulse Ox 96 01/21/19 19:35 - Medical History PMH: Asthma, Bipolar Disorder Other Surgeries: Hx of surgeries Family History: States: No Known Family Hx - Social History Hx Tobacco Use: Yes Hx Alcohol Use: Yes Hx Substance Use: Yes - Immunization History Hx Tetanus Toxoid Vaccination: No Hx Influenza Vaccination: No Hx Pneumococcal Vaccination: No Review Of Systems Except As Marked, All Systems Reviewed And Found Negative. Constitutional: Negative for: Fever, Chills Cardiovascular: Negative for: Chest Pain Respiratory: Negative for: Shortness of Breath Gastrointestinal: Positive for: Nausea, Abdominal Pain. Negative for: Vomiting, Diarrhea Genitourinary: Negative for: Dysuria, Hematuria Physical Exam - Physical Exam Appears: Non-toxic, No Acute Distress Skin: Warm, Dry Head: Normacephalic Eye(s): bilateral: Normal Inspection Nose: Normal Oral Mucosa: Moist Neck: Supple Chest: Symmetrical Cardiovascular: Rhythm Regular Respiratory: Normal Breath Sounds, No Rales, No Rhonchi, No Wheezing Gastrointestinal/Abdominal: Soft, Tenderness (epigastric ), No Guarding, No Rebound Back: No CVA Tenderness Extremity: Bilateral: Atraumatic, Normal Color And Temperature, Normal ROM Neurological/Psych: Oriented x3, Normal Speech Gait: Steady ED Course And Treatment - Laboratory Results Result Diagrams: 01/21/19 20:38 01/21/19 20:38 O2 Sat by Pulse Oximetry: 96 (RA) Pulse Ox Interpretation: Normal Medical Decision Making Medical Decision Making: Plan - Bloodwork - UA - Zofran 4mg IVP - Protonix 40mg IVP - Carafatel Oral 1gm PO Disposition Counseled Patient/Family Regarding: Diagnosis - Disposition Referrals: [facility] [Outside] Disposition: HOME/ ROUTINE Disposition Time: 23:17 Condition: STABLE Prescriptions: Ciprofloxacin HCl [Cipro] 250 mg PO BID #14 tablet Pantoprazole Sodium [Protonix] 40 mg PO DAILY #20 ect Sucralfate [Carafate] 1 gm PO BID #20 tab Instructions: Acid Reflux (GERD), Adolescent (DC), Urinary Tract Infections in Adults Forms: [employer] (Croatian) - POA Present On Arrival: None - Clinical Impression Clinical Impression: GERD (gastroesophageal reflux disease), UTI (urinary tract infection) - Scribe Statement The provider has reviewed the documentation as recorded by the Scribe Ju Reed All medical record entries made by the Heberibnmiesh were at my direction and personally dictated by me. I have reviewed the chart and agree that the record accurately reflects my personal performance of the history, physical exam, medical decision making, and the department course for this patient. I have also personally directed, reviewed, and agree with the discharge instructions and disposition.
[2019-01-21] MEDS ORDERED: Sodium Chloride 0.9% 1,000 ML ONE (20:22)
[2019-01-21 20:38] LABS: SQUAMOUS EPITHIAL 12 /hpf (0-5); URINE AMORPHOUS SEDIMENT FEW /ul (<OCC); URINE BACTERIA FEW (<OCC); URINE BILIRUBIN NEGATIVE (NEGATIVE); URINE BLOOD 1+ (NEGATIVE); URINE COLOR Amber (YELLOW); URINE GLUCOSE (UA) NORMAL (Normal); URINE LEUKOCYTE ESTERASE 1+ Leu/uL (Negative); URINE PROTEIN 1+ mg/dL (NEGATIVE); URINE UROBILINOGEN NORMAL mg/dL (0.2-1.0)
[2019-01-21 20:42] LABS: URINE CLARITY SLIGHT-CLOUDY (Clear)
[2019-01-21 20:42] LABS: BASO # 0.1 K/uL (0.0-0.2); BASO % 0.5 % (0.0-2.0); EOS # 0.2 K/uL (0.0-0.7); EOS % 1.3 % (0.0-4.0); HEMOGLOBIN 13.5 g/dL (11.0-16.0); LYMPH # 3.8 K/uL (1.0-4.3); LYMPH % 31.1 % (20.0-40.0); MEAN CELL VOLUME 96.2 fL (81.0-99.0); MEAN CORPUSCULAR HEMOGLOBIN 32.6 pg (27.0-31.0); MEAN CORPUSCULAR HGB CONC 33.9 g/dL (33.0-37.0); MEAN PLATELET VOLUME 7.2 fL (7.2-11.7); MONO # 1.1 K/uL (0.0-0.8); MONO % 8.9 % (0.0-10.0); NEUT # 7.2 K/uL (1.8-7.0); NEUT % 58.2 % (50.0-75.0); RBC 4.15 Mil/uL (3.80-5.20); WHITE BLOOD COUNT 12.3 K/uL (4.8-10.8)
[2019-01-21 20:57] LABS: ALB/GLOB RATIO 1.2 (1.0-2.1); ALBUMIN 4.2 g/dL (3.5-5.0); ALT/SGPT 32 U/L (9-52); AST/SGOT 27 U/L (14-36); BLOOD UREA NITROGEN 11 mg/dL (7-17); CALCIUM 9.3 mg/dl (8.6-10.4); GFR NON-AFRICAN AMERICAN > 60; LIPASE 50 U/L (23-300)
[2019-01-21 23:26] VITALS: BP 108/72; PULSE 72; RESP 18; TEMP 98.3
== END 2019-01-21 23:41 | disposition home or self-care (01) ==
LOC: C.ER 19:21
DX: K21.9 Gastro-esophageal reflux disease without esophagitis (principal); N39.0 Urinary tract infection, site not specified
CPT/HCPCS: 80053; 81001; 83690; 85025; 87086; 96374; 96375; 99284; C9113; J2405; J7030